=== PATIENT | male | born 1990 | race Caucasian/White ===

== ENCOUNTER 2018-11-23 04:20 | Observation (INO) | payer OTHER ==
--- NOTE | 2018-11-23 04:45 | XRay Report ---
PROCEDURE: XR CHEST 1V AP TECHNIQUE: Chest radiograph single view. HISTORY: Chest Pain COMPARISONS: None . FINDINGS: Heart: Normal. Mediastinum/Vessels: Normal. Lungs/Pleural space: Normal. Bony thorax: No acute osseous abnormality. Life support devices: None. IMPRESSION: No acute cardiopulmonary abnormality. This document is electronically signed by Robb Saucedo MD., November 23 2018 04:43:43 AM ET
[2018-11-23 05:35] LABS: Basophils % (Auto) 0.4 % (0.0-1.8); Eosinophils # (Auto) 0.1 K/mm3 (0.0-0.4); Eosinophils % (Auto) 0.7 % (0.0-4.3); Hematocrit 39.6 % (35.5-45.6); Hemoglobin 13.5 gm/dl (11.8-15.2); Lymphocytes # (Auto) 1.6 K/mm3 (1.2-5.4); Lymphocytes % (Auto) 14.6 % (13.4-35.0); Mean Corpuscular HGB Conc 34 % (32-34); Mean Corpuscular Volume 94 fl (84-94); Monocytes # (Auto) 0.8 K/mm3 (0.0-0.8); Monocytes % (Auto) 7.4 % (0.0-7.3); Platelet Count 283 K/mm3 (140-440); Red Blood Count 4.21 M/mm3 (3.65-5.03)
[2018-11-23 05:49] LABS: BUN/Creatinine Ratio 16; Blood Urea Nitrogen 16 mg/dL (9-20); Hemolysis Index 6
[2018-11-23] MEDS ORDERED: NACL 0.9% 1000 ML 1,000 ML ONE (05:49)
[2018-11-23] MEDS ORDERED: NACL 0.9% 1000 ML 1,000 ML IV ONE (05:50)
[2018-11-23] MEDS ORDERED: NITRO-BID 2% TP ONE (06:15)
[2018-11-23] MEDS ORDERED: ASPIRIN PO ONE (06:15)
--- NOTE | 2018-11-23 06:20 | Emergency Department Report ---
HPI - General Chief Complaint: Arrhythmia/Palpitations Time Seen by Provider: 11/23/18 06:06 - HPI HPI: Room 26 The patient is 27-year-old male presenting with chief complaint of chest pain. The patient states this morning at 04:00 after using cocaine he developed intermittent substernal chest tightness associated with shortness of breath nausea and vomiting. Patient denies diaphoresis. Patient states his chest tightness has been intermittent and lasts came on approximately 20 minutes prior to this interview. Patient states he's never had a stress test or cardiac catheterization Location: Chest Duration: Intermittent since 04:00 Quality: Tightness Severity: [See above] Modifying factors: [see above] Context: [see above] Mode of transportation: [not driving] ED Past Medical Hx - Past Medical History Previous Medical History?: No - Surgical History Past Surgical History?: No - Family History Family history: no significant - Social History Smoking Status: Current Every Day Smoker (1/7 pack per day) Substance Use Type: Alcohol (occasional), Cocaine, Marijuana - Medications Home Medications: Home Medications Medication Instructions Recorded Confirmed Last Taken Type Famotidine [Pepcid] 20 mg PO BID #40 tablet 05/10/14 Unknown Rx Hyoscyamine Subl [Levsin Sl] 0.125 mg SL Q4HR PRN #20 tablet 05/10/14 Unknown Rx Promethazine [Phenergan] 25 mg PO Q6H PRN #14 tablet 05/10/14 Unknown Rx ED Review of Systems ROS: Stated complaint: RAPID HEARTBEAT Other details as noted in HPI Constitutional: denies: diaphoresis Eyes: denies: eye pain ENT: denies: throat pain Respiratory: shortness of breath Cardiovascular: chest pain Endocrine: no symptoms reported Gastrointestinal: nausea, vomiting Musculoskeletal: denies: back pain Skin: denies: lesions Neurological: denies: headache Physical Exam - Physical Exam Vital Signs: Vital Signs 11/23/18 11/23/18 11/23/18 04:53 04:58 05:00 Pulse Rate 81 76 78 Respiratory 16 20 10 L Rate Blood Pressure 124/75 Blood Pressure 121/71 [Left] O2 Sat by Pulse 97 97 96 Oximetry 11/23/18 05:43 Pulse Rate 71 Respiratory 16 Rate Blood Pressure Blood Pressure 95/66 [Left] O2 Sat by Pulse 94 Oximetry Physical Exam: GENERAL: The patient is well-developed well-nourished male lying on stretcher not appearing to be in acute distress. [] HEENT: Normocephalic. Atraumatic. Extraocular motions are intact. Patient has moist mucous membranes. NECK: Supple. Trachea midline CHEST/LUNGS: Clear to auscultation. There is no respiratory distress noted. HEART/CARDIOVASCULAR: Regular. There is no tachycardia. There is no gallop rub or murmur. ABDOMEN: Abdomen is soft, nontender. Patient has normal bowel sounds. There is no abdominal distention. SKIN: There is no rash. There is no edema. There is no diaphoresis. NEURO: The patient is awake, alert, and oriented. The patient is cooperative. The patient has normal speech MUSCULOSKELETAL: There is no evidence of acute injury. ED Course Vital Signs 11/23/18 11/23/18 11/23/18 04:53 04:58 05:00 Pulse Rate 81 76 78 Respiratory 16 20 10 L Rate Blood Pressure 124/75 Blood Pressure 121/71 [Left] O2 Sat by Pulse 97 97 96 Oximetry 11/23/18 05:43 Pulse Rate 71 Respiratory 16 Rate Blood Pressure Blood Pressure 95/66 [Left] O2 Sat by Pulse 94 Oximetry ED Medical Decision Making - Lab Data Result diagrams: 11/23/18 Unknown 11/23/18 Unknown Laboratory Tests 11/23/18 11/23/18 11/23/18 06:29 Unknown Unknown WBC 11.1 H RBC 4.21 Hgb 13.5 Hct 39.6 MCV 94 MCH 32 MCHC 34 RDW 13.0 L Plt Count 283 Lymph % (Auto) 14.6 [place] % (Auto) 7.4 H Eos % (Auto) 0.7 Baso % (Auto) 0.4 Lymph # 1.6 [place] # 0.8 Eos # 0.1 Baso # 0.0 Seg Neutrophils % 76.9 H Seg Neutrophils # 8.5 H Sodium 138 Potassium 3.6 Chloride 101.3 Carbon Dioxide 24 Anion Gap 16 BUN 16 Creatinine 1.0 Estimated GFR > 60 BUN/Creatinine Ratio 16 Glucose 138 H Calcium 9.0 Total Creatine Kinase Troponin T < 0.010 Urine Opiates Screen Presumptive negative Urine Methadone Screen Presumptive negative Ur Barbiturates Screen Presumptive negative Ur Phencyclidine Scrn Presumptive negative Ur Amphetamines Screen Presumptive negative U Benzodiazepines Scrn Presumptive negative Urine Cocaine Screen Presumptive positive U Marijuana (THC) Screen Presumptive positive Drugs of Abuse Note Disclamer 11/23/18 Unknown WBC RBC Hgb Hct MCV MCH MCHC RDW Plt Count Lymph % (Auto) [place] % (Auto) Eos % (Auto) Baso % (Auto) Lymph # Mason # Eos # Baso # Seg Neutrophils % Seg Neutrophils # Sodium Potassium Chloride Carbon Dioxide Anion Gap BUN Creatinine Estimated GFR BUN/Creatinine Ratio Glucose Calcium Total Creatine Kinase 71 Troponin T Urine Opiates Screen Urine Methadone Screen Ur Barbiturates Screen Ur Phencyclidine Scrn Ur Amphetamines Screen U Benzodiazepines Scrn Urine Cocaine Screen U Marijuana (THC) Screen Drugs of Abuse Note - EKG Data -: EKG Interpreted by Me EKG shows normal: sinus rhythm Rate: normal - EKG Data When compared to previous EKG there are: previous EKG unavailable Interpretation: nonspecific ST-T wave [place] (T-wave inversion in lead 3) - Radiology Data Radiology results: report reviewed (chest x-ray), image reviewed (chest x-ray) interpreted by me: Chest x-ray-no focal infiltrates, no pneumothorax [facility] [address] [place] [address] XRay Report Signed Patient: ROSALIE BORREGO MR# : [id number] : 1990 Acct:[id number] Age/Sex: 27 / M ADM Date: 11/23/18 Loc: ED Attending Dr: Ordering Physician: JEANNE COONEY MD Date of Service: 11/23/18 Procedure(s): XR chest 1V ap Accession Number(s): [id number] cc: JEANNE COONEY MD Fluoro Time In Minutes: PROCEDURE: XR CHEST 1V AP TECHNIQUE: Chest radiograph single view. HISTORY: Chest Pain COMPARISONS: None . FINDINGS: Heart: Normal. Mediastinum/Vessels: Normal. Lungs/Pleural space: Normal. Bony thorax: No acute osseous abnormality. Life support devices: None. IMPRESSION: No acute cardiopulmonary abnormality. This document is electronically signed by Maricel Saucedo MD., November 23 2018 04:43:43 AM ET Transcribed By: RB Dictated By: MARICEL SAUCEDO MD Electronically Authenticated By: MARICEL SAUCEDO MD Signed Date/Time: 11/23/18444 DD/ 9 TD/TT: 11/23/18439 - Differential Diagnosis ACS, Prinzmetal's angina, pleurisy, pneumothorax Critical care attestation.: If time is entered above; I have spent that time in minutes in the direct care of this critically ill patient, excluding procedure time. ED Disposition Clinical Impression: Chest pain, Cocaine abuse Disposition: OP ADMIT IP TO THIS HOSP Is pt being admited?: Yes Does the pt Need Aspirin: Yes Condition: Fair Instructions: Chest Pain (ED) Referrals: LENNOX OSBORNE MD [Primary Care Provider] - 3-5 Days Time of Disposition: 07:19 (hospitalist paged (Dr Collins))
[2018-11-23 06:48] LABS: Amphetamine Screen,Urine PRESUMPTIVE NEGATIVE; Benzodiazepines Screen,Urine PRESUMPTIVE NEGATIVE; Methadone Screen,Urine PRESUMPTIVE NEGATIVE; Opiate Screen,Urine PRESUMPTIVE NEGATIVE
[2018-11-23 07:11] LABS: Cannabinoid Screen,Urine PRESUMPTIVE POSITIVE; Cocaine Screen,Urine PRESUMPTIVE POSITIVE
--- NOTE | 2018-11-23 09:18 | History and Physical Report ---
History of Present Illness Date of examination: 11/23/18 Date of admission: 11/23/18 07:34 Chief complaint: Chest pain, shortness of breath History of present illness: The patient is 27-year-old male presenting with chief complaint of chest pain. The patient states this morning at 04:00 after using cocaine he developed intermittent substernal chest tightness associated with shortness of breath nausea and vomiting. Patient denies diaphoresis. Patient states his chest tightness has been intermittent and lasts came on approximately 20 minutes prior to this interview. Patient states he's never had a stress test or cardiac catheterization Past History Past Medical History: hypertension Past Surgical History: No surgical history Social history: smoking, alcohol abuse Medications and Allergies Allergies Allergy/AdvReac Type Severity Reaction Status Date / Time No Known Allergies Allergy Verified 04/20/14 20:25 Home Medications Medication Instructions Recorded Confirmed Last Taken Type Famotidine [Pepcid] 20 mg PO BID #40 tablet 05/10/14 Unknown Rx Hyoscyamine Subl [Levsin Sl] 0.125 mg SL Q4HR PRN #20 tablet 05/10/14 Unknown Rx Promethazine [Phenergan] 25 mg PO Q6H PRN #14 tablet 05/10/14 Unknown Rx Active Meds: Review of systems Constitutional: Well Nourished and Well developed. Head: NC/ AT Eyes: Denies any visual impairments. No discharge from the eyes Nose: Denies any rhinorrhea or epistaxis Throats: Denies any post nasal drainage. Ears: Denies any hearing deficits Cardiovascular system: has chest pain, shortness of breath, no orthopnea, paroxysmal nocturnal dyspnea, or palpitation. Respiratory system: Denies any cough, difficulty breathing, wheezing, pleuritic chest pain, Gastrointestinal system: Denies any abdominal pain, nausea vomiting, hematemesis or melena. Neurological system: Denies any headache, slurred speech, facial droop, lateralizing weakness Genitalia system: Denies any dysuria, urinary frequency or urgency, urethral discharge Skin: No rashes, hyperpigmented spots. Hematological: Denies any cervical tenderness hemorrhages or petechia. Immunological: Denies any multiple septic spots, Lymphatic: Denies any generalized lymphadenopathy. Endocrine: Denies any polyuria, polydipsia, polyphagia. No heat or cold intolerance. Musculoskeletal system: No joint pain or swelling. Psych: No visual, tactile, auditory or hallucination Exam - Physical Exam Narrative exam: Constitutional: Well-nourished well-developed. In no distress Head: Normocephalic atraumatic Eyes: Pupils are equal round and reactive to light Nose: No enlarged turbinates, no septal deviation. Mouth: Moist mucous membranes. Neck: Supple no thyromegaly. No bruit. No JVD Heart: Regular rate and rhythm, S1-S2 normal. No rubs murmurs or gallop Lungs: Clear to auscultation bilaterally. no rales or rhonchi Abdomen: Soft, nontender. Bowel sound are present. Extremities: No edema, no cyanosis, no clubbing. Neuro: Alert oriented Oriented x3. No focal sensory or motor deficit. Skin: No rashes or hyperpigmented spots Musculoskeletal system: No joint pain or swelling Hematological: No petechia or subcutanous hemorrhages. Immunological: No multiple septic spots on the skin Lymphatic: No generalized lymphadenopathy Psychiatry: Euthymic. Calm. - Constitutional Vitals: Temp Pulse Resp BP Pulse Ox 54 L 13 119/58 96 11/23/18 09:00 11/23/18 09:00 11/23/18 09:00 11/23/18 09:00 Results - Labs CBC & Chem 7: 11/23/18 Unknown 11/23/18 Unknown Labs: Abnormal lab results 11/23/18 11/23/18 Range/Units Unknown Unknown WBC 11.1 H (4.5-11.0) K/mm3 RDW 13.0 L (13.2-15.2) % [place] % (Auto) 7.4 H (0.0-7.3) % Seg Neutrophils % 76.9 H (40.0-70.0) % Seg Neutrophils # 8.5 H (1.8-7.7) K/mm3 Glucose 138 H (75-100) mg/dL Assessment and Plan - Chest pain from cocaine use disorder Comments patient is nitroglycerin and aspirin and morphine Similar enzymes Stress thallium - Cocaine abuse counseling on cocaine cessation - DVT prophylaxis with Lovenox Time spent: 35 minutes
[2018-11-23] MEDS ORDERED: D5LR 1,000 ML IV SCH (10:00)
[2018-11-23] MEDS ORDERED: SODIUM CHLORIDE FLUSH SYRINGE 10 ML IV PRN (10:00)
[2018-11-23] MEDS ORDERED: MORPHINE IV PRN (10:00)
[2018-11-23 10:17] LABS: BUN/Creatinine Ratio 16; Blood Urea Nitrogen 14 mg/dL (9-20); Calcium 8.8 mg/dL (8.4-10.2); Hemolysis Index 6
[2018-11-23] MEDS ORDERED: LEXISCAN IV ONE ×2 (10:40→11:31)
[2018-11-23 13:22] VITALS: BP 108/72
[2018-11-23] MEDS ORDERED: NITRO-BID 2% TP SCH (14:00)
[2018-11-24] MEDS ORDERED: ECOTRIN PO SCH (10:00)
--- NOTE | 2018-11-27 22:00 | Treadmill Report ---
NUCLEAR PERFUSION TEST REFERRING PHYSICIAN: Dr. Mcleod. SUPERVISING PHYSICIAN: Dr. Ferguson. PROTOCOL: The patient was brought to the stress lab in a postabsorptive state, given 10 mCi of technetium 99m at rest. The patient underwent rest imaging. The patient underwent Lexiscan stress test. At peak stress, the patient was given 26 mCi of technetium 99m. Shortly thereafter, the patient underwent stress imaging. Raw imaging reveals significant GI artifact which partially obscures the inferior wall. No significant motion artifact. SPECT image examined carefully in the horizontal long axis, vertical long axis, and short axis views. Although the inferior wall is partially obscured by subdiaphragmatic activity, grossly, there is no evidence of a significant degree of ischemia or prior infarction. Bowman wall motion reveals normal systolic thickening, calculated ejection fraction of 58%. CONCLUSIONS: 1. Technically difficult study due to partial obscuration of the inferior wall with subdiaphragmatic activity, but grossly probably normal without evidence of significant degree of ischemia or prior infarction. 2. Normal left ventricular systolic performance with a calculated ejection fraction of 58% without evidence of transient ischemic dilatation or stress-induced segmental wall motion abnormalities. 3. Lexiscan EKG stress test is reported separately. JOB# [id number] SBM/NTS
--- NOTE | 2018-11-29 14:13 | Discharge Summary ---
Date of signing against medical advice was 11/23/2018. ADMITTING DIAGNOSES: 1. Chest pain, possibly from cocaine use. 2. Cocaine abuse. 3. Mild leukocytosis. HOSPITAL COURSE: The patient is a 27-year-old gentleman who came in complaining of chest pain that was dull in nature. It started after using cocaine. Chest pain was intermittent. Associated with shortness of breath, nausea, vomiting. No diaphoresis. On admission to the Emergency Department, the cardiac enzymes were normal. UDS was positive for cocaine. Stress test was ordered. This was normal. On returning from stress test said that he wanted to go home. He was advised against the same. He insisted and signed form to discharge against medical advice. DISCHARGE DIAGNOSES: Include: 1. Chest pain from cocaine abuse. 2. Cocaine abuse. 3. Mild leukocytosis. JOB# [id number] OO/LAUREN MTDElizabet
== END 2018-11-23 12:15 | disposition left against medical advice (07) ==
LOC: ED 04:20 → 4A 07:34
PROVIDERS: ADMIT Family Medicine; ATTEND Family Medicine
DX: R07.89 Other chest pain (principal); R11.2 Nausea with vomiting, unspecified; F14.10 Cocaine abuse, uncomplicated; F17.200 Nicotine dependence, unspecified, uncomplicated; Z79.899 Other long term (current) drug therapy
CPT/HCPCS: 36415; 71045; 78452; 80048; 80307; 82550; 84484; 85025; 93005; 93010; 93017; 96360; 99284; A9502; G0378; J2785; J7030; J7121

== ENCOUNTER 2019-10-16 08:20 | Emergency (ER) | payer SELFPAY ==
[2019-10-16] MEDS ORDERED: DICYCLOMINE 20 MG/2 ML INJ IM ONE (09:38)
[2019-10-16] MEDS ORDERED: ONDANSETRON 4 MG/2 ML INJ IV ONE ×2 (09:38→13:40)
[2019-10-16] MEDS ORDERED: SODIUM CHLORIDE 0.9% 1000 ML 1,000 ML IV ONE (09:38)
--- NOTE | 2019-10-16 09:45 | Emergency Department Report ---
ED Abdominal Pain HPI - General Chief Complaint: Abdominal Pain Stated Complaint: V/FEVER Time Seen by Provider: 10/16/19 09:25 Source: patient Mode of arrival: Ambulatory Limitations: No Limitations - History of Present Illness Initial Comments: Pt is a 28 y/o male marijuana smoker who presents for abd pain with n/v x 3 days denies medical hx, there is no fever or chills, denies injury or trauma. states last po intake yesterday , last n/v 2 hrs ago. last Marijuana 2 days ago. MD Complaint: abdominal pain Onset/Timin -: days(s) Location: LLQ Radiation: RLQ Severity: moderate Severity scale (0 -10): 5 Quality: cramping, aching Consistency: constant Improves With: nothing Worsens With: eating Associated Symptoms: nausea, vomiting. denies: diarrhea, constipation, hematemesis - Related Data Previous Rx's Medication Instructions Recorded Last Taken Type Famotidine [Pepcid] 20 mg PO BID #40 tablet 05/10/14 Unknown Rx Hyoscyamine Subl [Levsin Sl] 0.125 mg SL Q4HR PRN #20 tablet 05/10/14 Unknown Rx Promethazine [Phenergan] 25 mg PO Q6H PRN #14 tablet 05/10/14 Unknown Rx Dicyclomine [Bentyl] 10 mg PO QID PRN #12 capsule 10/16/19 Unknown Rx Ondansetron [Zofran Odt] 4 mg PO Q8HR PRN #112 tab.rapdis 10/16/19 Unknown Rx cephALEXin [Keflex] 500 mg PO BID 7 Days #14 cap 10/16/19 Unknown Rx Allergies Allergy/AdvReac Type Severity Reaction Status Date / Time No Known Allergies Allergy Verified 10/16/19 08:24 ED Review of Systems ROS: Stated complaint: V/FEVER Other details as noted in HPI Constitutional: denies: chills, fever Eyes: denies: eye pain, eye discharge, vision change ENT: denies: ear pain, throat pain Respiratory: denies: cough, shortness of breath, wheezing Cardiovascular: denies: chest pain, palpitations Endocrine: no symptoms reported Gastrointestinal: abdominal pain, nausea, vomiting. denies: diarrhea, c onstipation, melena Genitourinary: denies: urgency, dysuria Musculoskeletal: denies: back pain, joint swelling, arthralgia Skin: denies: rash, lesions Neurological: denies: headache, weakness, paresthesias Psychiatric: denies: anxiety, depression Hematological/Lymphatic: denies: easy bleeding, easy bruising ED Past Medical Hx - Past Medical History Previous Medical History?: No - Surgical History Past Surgical History?: No - Social History Smoking Status: Never Smoker Substance Use Type: Marijuana - Medications Home Medications: Home Medications Medication Instructions Recorded Confirmed Last Taken Type Famotidine [Pepcid] 20 mg PO BID #40 tablet 05/10/14 Unknown Rx Hyoscyamine Subl [Levsin Sl] 0.125 mg SL Q4HR PRN #20 tablet 05/10/14 Unknown Rx Promethazine [Phenergan] 25 mg PO Q6H PRN #14 tablet 05/10/14 Unknown Rx Dicyclomine [Bentyl] 10 mg PO QID PRN #12 capsule 10/16/19 Unknown Rx Ondansetron [Zofran Odt] 4 mg PO Q8HR PRN #112 tab.rapdis 10/16/19 Unknown Rx cephALEXin [Keflex] 500 mg PO BID 7 Days #14 cap 10/16/19 Unknown Rx ED Physical Exam - General Limitations: No Limitations General appearance: alert, in no apparent distress - Head Head exam: Present: atraumatic, normocephalic - Eye Eye exam: Present: normal appearance, PERRL, EOMI Pupils: Present: normal accommodation - ENT ENT exam: Present: mucous membranes moist - Neck Neck exam: Present: normal inspection - Respiratory Respiratory exam: Present: normal lung sounds bilaterally. Absent: respiratory distress, wheezes - Cardiovascular Cardiovascular Exam: Present: regular rate, normal rhythm, normal heart sounds. Absent: systolic murmur, diastolic murmur, rubs, gallop - GI/Abdominal GI/Abdominal exam: Present: soft, tenderness (LLQ), hyperactive bowel sounds. Absent: guarding, rebound, rigid, bruit, hernia - Rectal Rectal exam: Present: deferred - Extremities Exam Extremities exam: Present: normal inspection - Back Exam Back exam: Present: normal inspection - Neurological Exam Neurological exam: Present: alert, oriented X3 - Psychiatric Psychiatric exam: Present: normal affect, normal mood - Skin Skin exam: Present: warm, dry, intact, normal color. Absent: rash ED Course Vital Signs 10/16/19 10/16/19 08:24 08:27 Temperature 97.9 F Pulse Rate 88 Respiratory 20 Rate Blood Pressure 133/65 O2 Sat by Pulse 98 Oximetry ED Medical Decision Making - Lab Data Result diagrams: 10/16/19 09:55 10/16/19 09:55 Labs 10/16/19 10/16/19 10/16/19 09:55 09:55 10:29 WBC 10.6 RBC 4.13 Hgb 13.0 Hct 38.5 MCV 93 MCH 32 MCHC 34 RDW 13.0 L Plt Count 300 Lymph % (Auto) 15.8 [place] % (Auto) 7.9 H Eos % (Auto) 0.7 Baso % (Auto) 0.3 Lymph # 1.7 [place] # 0.8 Eos # 0.1 Baso # 0.0 Seg Neutrophils % 75.3 H Seg Neutrophils # 8.0 H Sodium 139 Potassium 4.0 Chloride 107.0 Carbon Dioxide 20 L Anion Gap 16 BUN 24 H Creatinine 0.9 Estimated GFR > 60 BUN/Creatinine Ratio 27 Glucose 115 H Calcium 9.3 Total Bilirubin 0.80 AST 24 ALT 24 Alkaline Phosphatase 99 Total Protein 7.0 Albumin 4.2 Albumin/Globulin Ratio 1.5 Lipase 17 Urine Color Yellow Urine Turbidity Cloudy Urine pH 5.0 Ur Specific [place] 1.029 Urine Protein 30 mg/dl Urine Glucose (UA) Neg Urine Ketones Neg Urine Blood Neg Urine Nitrite Neg Urine Bilirubin Neg Urine Urobilinogen < 2.0 Ur Leukocyte Esterase Sm Urine WBC (Auto) 33.0 H Urine RBC (Auto) 7.0 U Epithel Cells (Auto) 3.0 Ur Transition Epith Cell 3 Urine Mucus 3+ - Radiology Data Radiology results: report reviewed, image reviewed Findings Reporting MD: Gal Gibbs Dictation Time: October 16, 2019 14:51 Home Support Worker: Not available Lath Tier Date: CT ABDOMEN AND PELVIS WITHOUT CONTRAST INDICATION: Bilateral flank pain CONTRAST: Without IV COMPARISON: 05/10/2014, report unavailable All CT scans at this location are performed using CT dose reduction for ALARA by means of automated exposure control. FINDINGS: Lung bases are clear. No pneumoperitoneum is noted. Fatty umbilical hernia is seen without acute change and without bowel. Appendix appears within normal limits. Appearance of the left colon probably is just due to lack of distention. No evidence of bowel obstruction is seen. No free fluid is noted. No lymphadenopathy is seen. No urinary tract calculi or evidence of obstruction are seen. No masses are noted. Gallbladder and bile ducts appear within normal limits. No inflammatory changes are seen. IMPRESSION: No acute abnormalities are seen Signer Name: Gal Gibbs MD Signed: 10/16/2019 2:51 PM Workstation Name: [email or web address] - Medical Decision Making CT abdomen pelvis is normal UA positive for leuks and white blood cells , fevers improved abdominal pain is resolved plan treat for UTI with Cipro, patient will obtain [id number] MiraLAX or laxative of choice patient will be DC'd home in stable condition at this time advised to stop using or abusing marijuana follow-up with PCP in 2 to 3 days. Critical care attestation.: If time is entered above; I have spent that time in minutes in the direct care of this critically ill patient, excluding procedure time. ED Disposition Clinical Impression: UTI (urinary tract infection) Qualifiers: Urinary tract infection type: acute cystitis Hematuria presence: without hematuria Qualified Code(s): N30.00 - Acute cystitis without hematuria Abdominal pain Qualifiers: Abdominal location: lower abdomen, unspecified Qualified Code(s): R10.30 - Lower abdominal pain, unspecified Disposition: DC-01 TO HOME OR SELFCARE Is pt being admited?: No Does the pt Need Aspirin: No Condition: Stable Instructions: Urinary Tract Infection in Men (ED), Abdominal Pain (ED) Prescriptions: Dicyclomine [Bentyl] 10 mg PO QID PRN #12 capsule PRN Reason: abdominal spasm cephALEXin [Keflex] 500 mg PO BID 7 Days #14 cap Ondansetron [Zofran Odt] 4 mg PO Q8HR PRN #112 tab.rapdis PRN Reason: Nausea And Vomiting Referrals: EDOUARD CEDENO MD [Staff Physician] - 3-5 Days Forms: Work/School Release Form(ED) Time of Disposition: 16:13
[2019-10-16 10:39] LABS: Alanine Aminotransferase 24 units/L (7-56); Albumin 4.2 g/dL (3.9-5); BUN/Creatinine Ratio 27; Blood Urea Nitrogen 24 mg/dL (9-20); Calcium 9.3 mg/dL (8.4-10.2); Hemolysis Index 61
[2019-10-16 11:02] LABS: Basophils % (Auto) 0.3 % (0.0-1.8); Eosinophils # (Auto) 0.1 K/mm3 (0.0-0.4); Eosinophils % (Auto) 0.7 % (0.0-4.3); Hematocrit 38.5 % (35.5-45.6); Lymphocytes # (Auto) 1.7 K/mm3 (1.2-5.4); Lymphocytes % (Auto) 15.8 % (13.4-35.0); Mean Corpuscular HGB Conc 34 % (32-34); Mean Corpuscular Volume 93 fl (84-94); Monocytes # (Auto) 0.8 K/mm3 (0.0-0.8); Monocytes % (Auto) 7.9 % (0.0-7.3); Platelet Count 300 K/mm3 (140-440); Red Blood Count 4.13 M/mm3 (3.65-5.03)
[2019-10-16 11:41] LABS: Bilirubin,Urine NEG (Negative); Blood,Urine NEG (Negative); Color,Urine Yellow (Yellow); Mucus,Urine 3+ /HPF; Urobilinogen,Urine < 2.0 mg/dL (<2.0)
[2019-10-16] MEDS ORDERED: MORPHINE 4 MG/1 ML INJ IV ONE (13:40)
--- NOTE | 2019-10-16 15:55 | Cat Scan Report ---
CT ABDOMEN AND PELVIS WITHOUT CONTRAST INDICATION: Bilateral flank pain CONTRAST: Without IV COMPARISON: 05/10/2014, report unavailable All CT scans at this location are performed using CT dose reduction for ALARA by means of automated e xposure control. FINDINGS: Lung bases are clear. No pneumoperitoneum is noted. Fatty umbilical hernia is seen without acute change and without bowel. Appendix appears within normal limits. Appearance of the left colon p robably is just due to lack of distention. No evidence of bowel obstruction is seen. No free fluid is noted. No lymphadenopathy is seen. No urinary tract calculi or evidence of obstruction are seen. No masses are noted. Gallbladder and bile ducts appear within normal limits. No inflammatory changes are seen. IMPRESSION: No acute abnormalities are seen Signer Name: Gal Gibbs MD Signed: 10/16/2019 3:51 PM Workstation Name: [id number]
[2019-10-16 16:34] VITALS: BP 131/82
== END 2019-10-16 16:35 | disposition home or self-care (01) ==
LOC: ED 08:20
DX: N39.0 Urinary tract infection, site not specified (principal); F12.10 Cannabis abuse, uncomplicated; Z79.899 Other long term (current) drug therapy
CPT/HCPCS: 36415; 74176; 80053; 81001; 83690; 85025; 87086; 96361; 96372; 96374; 96375; 96376; 99284; J0500; J2270; J2405; J7030

== ENCOUNTER 2019-10-17 16:33 | Emergency (ER) | payer SELFPAY ==
[2019-10-17 16:41] VITALS: BP 135/76
== END 2019-10-17 18:30 | disposition left against medical advice (07) ==
LOC: ED 16:33
DX: R10.9 Unspecified abdominal pain (principal); R11.2 Nausea with vomiting, unspecified; Z53.21 Procedure and treatment not carried out due to patient leaving prior to being seen by health care provider

== ENCOUNTER 2019-10-18 09:13 | Emergency (ER) | payer SELFPAY ==
[2019-10-18 10:25] LABS: Bilirubin,Urine NEG (Negative); Blood,Urine SM (Negative); Color,Urine Straw (Yellow); Mucus,Urine FEW /HPF; Protein,Urine <15 mg/dL mg/dL (Negative); Urobilinogen,Urine < 2.0 mg/dL (<2.0)
[2019-10-18] MEDS ORDERED: FAMOTIDINE 20 MG/2 ML INJ IV ONE (11:06)
[2019-10-18] MEDS ORDERED: SODIUM CHLORIDE 0.9% 1000 ML 1,000 ML IV ONE (11:06)
--- NOTE | 2019-10-18 11:06 | Emergency Department Report ---
ED Abdominal Pain HPI - General Chief Complaint: Nausea/Vomiting/Diarrhea Stated Complaint: NAUSEA Time Seen by Provider: 10/18/19 09:57 Source: patient Mode of arrival: Ambulatory Limitations: No Limitations - History of Present Illness Initial Comments: 28-year-old male patient presents with complaints of continued nausea and abdominal pain for 5 days. Patient was seen here on 10/16/2019 with the same complaints. Patient symptoms began after smoking marijuana. He does report history of esophagitis caused by high alcohol intake. Patient states he also still experiences a great deal of heartburn, however he does not currently take any antacids. Patient rates his current pain as a 4/10 in severity and states it is in his upper, middle and lower abdomen. During last visit, patient was also treated for UTI with Cipro and states his symptoms of urinary frequency and dysuria have resolved. He denies any penile discharge/pain/swelling/lesions or testicular pain/swelling. Patient also denies any vomiting, melena, constipation, hematochezia, or diarrhea. He states he is able to keep food down, however he has a decreased appetite. He is not currently following with a GI specialist. - Related Data Previous Rx's Medication Instructions Recorded Last Taken Type Famotidine [Pepcid] 20 mg PO BID #40 tablet 05/10/14 Unknown Rx Hyoscyamine Subl [Levsin Sl] 0.125 mg SL Q4HR PRN #20 tablet 05/10/14 Unknown Rx Promethazine [Phenergan] 25 mg PO Q6H PRN #14 tablet 05/10/14 Unknown Rx Dicyclomine [Bentyl] 10 mg PO QID PRN #12 capsule 10/16/19 Unknown Rx Ondansetron [Zofran Odt] 4 mg PO Q8HR PRN #112 tab.rapdis 10/16/19 Unknown Rx cephALEXin [Keflex] 500 mg PO BID 7 Days #14 cap 10/16/19 Unknown Rx Ondansetron [Zofran Odt] 4 mg PO Q8HR PRN #15 tab.rapdis 10/18/19 Unknown Rx Pantoprazole [Protonix] 40 mg PO QAM 30 Days #30 tablet 10/18/19 Unknown Rx Sucralfate [Carafate] 1 gm PO Q6HR 15 Days #60 tablet 10/18/19 Unknown Rx Allergies Allergy/AdvReac Type Severity Reaction Status Date / Time No Known Allergies Allergy Verified 10/16/19 08:24 ED Review of Systems ROS: Stated complaint: NAUSEA Other details as noted in HPI Constitutional: denies: chills, fever, malaise ENT: denies: throat pain Respiratory: denies: cough, shortness of breath Cardiovascular: denies: chest pain, edema Endocrine: denies: excessive sweating Gastrointestinal: abdominal pain, nausea. denies: vomiting, diarrhea, constipation, hematemesis, melena, hematochezia Genitourinary: denies: urgency, dysuria, frequency, hematuria, discharge, t esticular pain, testicular mass Musculoskeletal: denies: back pain Skin: denies: rash, lesions, change in color Neurological: denies: headache, weakness, abnormal gait Hematological/Lymphatic: denies: easy bleeding, easy bruising, swollen glands ED Past Medical Hx - Past Medical History Previous Medical History?: No - Surgical History Past Surgical History?: No - Social History Smoking Status: Current Some Day Smoker Substance Use Type: Alcohol, Marijuana - Medications Home Medications: Home Medications Medication Instructions Recorded Confirmed Last Taken Type Famotidine [Pepcid] 20 mg PO BID #40 tablet 05/10/14 Unknown Rx Hyoscyamine Subl [Levsin Sl] 0.125 mg SL Q4HR PRN #20 tablet 05/10/14 Unknown Rx Promethazine [Phenergan] 25 mg PO Q6H PRN #14 tablet 05/10/14 Unknown Rx Dicyclomine [Bentyl] 10 mg PO QID PRN #12 capsule 10/16/19 Unknown Rx Ondansetron [Zofran Odt] 4 mg PO Q8HR PRN #112 tab.rapdis 10/16/19 Unknown Rx cephALEXin [Keflex] 500 mg PO BID 7 Days #14 cap 10/16/19 Unknown Rx Ondansetron [Zofran Odt] 4 mg PO Q8HR PRN #15 tab.rapdis 10/18/19 Unknown Rx Pantoprazole [Protonix] 40 mg PO QAM 30 Days #30 tablet 10/18/19 Unknown Rx Sucralfate [Carafate] 1 gm PO Q6HR 15 Days #60 tablet 10/18/19 Unknown Rx ED Physical Exam - General Limitations: No Limitations General appearance: alert, in no apparent distress - Head Head exam: Present: atraumatic, normocephalic - Eye Eye exam: Present: normal appearance. Absent: scleral icterus - Neck Neck exam: Present: normal inspection, full ROM - Respiratory Respiratory exam: Present: normal lung sounds bilaterally. Absent: respiratory distress - Cardiovascular Cardiovascular Exam: Present: regular rate, normal rhythm. Absent: systolic murmur, diastolic murmur, rubs, gallop - GI/Abdominal GI/Abdominal exam: Present: soft, tenderness, normal bowel sounds. Absent: distended, guarding, rebound, rigid - Extremities Exam Extremities exam: Present: normal inspection - Back Exam Back exam: Present: normal inspection. Absent: CVA tenderness (R), CVA tenderness (L) - Neurological Exam Neurological exam: Present: alert, oriented X3 - Psychiatric Psychiatric exam: Present: normal affect, normal mood - Skin Skin exam: Present: warm, dry, intact, normal color. Absent: rash, erythema, ecchymosis ED Course Vital Signs 10/18/19 09:18 Temperature 98 F Pulse Rate 72 Respiratory 16 Rate Blood Pressure 129/77 O2 Sat by Pulse 98 Oximetry ED Medical Decision Making - Lab Data Result diagrams: 10/18/19 10:42 10/18/19 10:42 Lab Results 10/18/19 10/18/19 10/18/19 Range/Units 10:12 10:42 10:42 WBC 10.5 (4.5-11.0) K/mm3 RBC 4.32 (3.65-5.03) M/mm3 Hgb 13.2 (11.8-15.2) gm/dl Hct 39.9 (35.5-45.6) % MCV 92 (84-94) fl MCH 31 (28-32) pg MCHC 33 (32-34) % RDW 13.5 (13.2-15.2) % Plt Count 327 (140-440) K/mm3 Lymph % (Auto) 19.7 (13.4-35.0) % [place] % (Auto) 7.9 H (0.0-7.3) % Eos % (Auto) 0.4 (0.0-4.3) % Baso % (Auto) 0.5 (0.0-1.8) % Lymph # 2.1 (1.2-5.4) K/mm3 [place] # 0.8 (0.0-0.8) K/mm3 Eos # 0.0 (0.0-0.4) K/mm3 Baso # 0.1 (0.0-0.1) K/mm3 Seg Neutrophils % 71.5 H (40.0-70.0) % Seg Neutrophils # 7.5 (1.8-7.7) K/mm3 Sodium 140 (137-145) mmol/L Potassium 4.1 (3.6-5.0) mmol/L Chloride 106.8 (98-107) mmol/L Carbon Dioxide 24 (22-30) mmol/L Anion Gap 13 mmol/L BUN 11 (9-20) mg/dL Creatinine 1.0 (0.8-1.5) mg/dL Estimated GFR > 60 ml/min BUN/Creatinine Ratio 11 % Glucose 124 H (75-100) mg/dL Calcium 9.1 (8.4-10.2) mg/dL Total Bilirubin 1.20 (0.1-1.2) mg/dL AST 19 (5-40) units/L ALT 22 (7-56) units/L Alkaline Phosphatase 98 (35-129) units/L Total Protein 7.0 (6.3-8.2) g/dL Albumin 4.1 (3.9-5) g/dL Albumin/Globulin Ratio 1.4 % Lipase (13-60) units/L Urine Color Straw (Yellow) Urine Turbidity Clear (Clear) Urine pH 7.0 (5.0-7.0) Ur Specific [place] 1.010 (1.003-1.030) Urine Protein <15 mg/dl (Negative) mg/dL Urine Glucose (UA) Neg (Negative) mg/dL Urine Ketones Neg (Negative) mg/dL Urine Blood Sm (Negative) Urine Nitrite Neg (Negative) Urine Bilirubin Neg (Negative) Urine Urobilinogen < 2.0 (<2.0) mg/dL Ur Leukocyte Esterase Neg (Negative) Urine WBC (Auto) 2.0 (0.0-6.0) /HPF Urine RBC (Auto) 3.0 (0.0-6.0) /HPF Urine Mucus Few /HPF 05/18/20 Range/Units 10:42 WBC (4.5-11.0) K/mm3 RBC (3.65-5.03) M/mm3 Hgb (11.8-15.2) gm/dl Hct (35.5-45.6) % MCV (84-94) fl MCH (28-32) pg MCHC (32-34) % RDW (13.2-15.2) % Plt Count (140-440) K/mm3 Lymph % (Auto) (13.4-35.0) % [place] % (Auto) (0.0-7.3) % Eos % (Auto) (0.0-4.3) % Baso % (Auto) (0.0-1.8) % Lymph # (1.2-5.4) K/mm3 [place] # (0.0-0.8) K/mm3 Eos # (0.0-0.4) K/mm3 Baso # (0.0-0.1) K/mm3 Seg Neutrophils % (40.0-70.0) % Seg Neutrophils # (1.8-7.7) K/mm3 Sodium (137-145) mmol/L Potassium (3.6-5.0) mmol/L Chloride (98-107) mmol/L Carbon Dioxide (22-30) mmol/L Anion Gap mmol/L BUN (9-20) mg/dL Creatinine (0.8-1.5) mg/dL Estimated GFR ml/min BUN/Creatinine Ratio % Glucose (75-100) mg/dL Calcium (8.4-10.2) mg/dL Total Bilirubin (0.1-1.2) mg/dL AST (5-40) units/L ALT (7-56) units/L Alkaline Phosphatase (35-129) units/L Total Protein (6.3-8.2) g/dL Albumin (3.9-5) g/dL Albumin/Globulin Ratio % Lipase 31 (13-60) units/L Urine Color (Yellow) Urine Turbidity (Clear) Urine pH (5.0-7.0) Ur Specific [place] (1.003-1.030) Urine Protein (Negative) mg/dL Urine Glucose (UA) (Negative) mg/dL Urine Ketones (Negative) mg/dL Urine Blood (Negative) Urine Nitrite (Negative) Urine Bilirubin (Negative) Urine Urobilinogen (<2.0) mg/dL Ur Leukocyte Esterase (Negative) Urine WBC (Auto) (0.0-6.0) /HPF Urine RBC (Auto) (0.0-6.0) /HPF Urine Mucus /HPF - Medical Decision Making Patient here with complaints of continued abdominal pain and nausea for 5 days now. Patient was seen here 10/16/2019 for the same symptoms. During that visit, patient's labs were normal and his CT with oral contrast was without acute findings. Patient was found to have a UTI and was treated with Cipro, patient states his dysuria has resolved. White count is normal on CBC. UA is now antonina l. CMP is normal. No rebound or guarding noted on abdominal exam. Patient has a history of esophagitis caused by alcohol abuse. Patient was given a GI cocktail, IV Protonix, and Zofran. He is drinking and eating without difficulty here in the ED now. Patient states his symptoms have significantly improved. He is afebrile and non-tachycardic. Patient is well-appearing and stable for discharge home. Prescriptions for Protonix and Carafate given. Patient informed to follow-up with [facility] and gastroenterology for further treatment. Strict return precautions were discussed in great detail with patient who verbalizes understanding. Discussed patient with MD who agrees with plan of care. Critical care attestation.: If time is entered above; I have spent that time in minutes in the direct care of this critically ill patient, excluding procedure time. ED Disposition Clinical Impression: Nausea Gastritis Qualifiers: Gastritis type: other gastritis Chronicity: acute Gastritis bleeding: presence of bleeding unspecified Qualified Code(s): K29.00 - Acute gastritis without bleeding Disposition: DC-01 TO HOME OR SELFCARE Is pt being admited?: No Condition: Stable Instructions: Gastritis (ED), Diet for Ulcers and Gastritis (ED) Prescriptions: Sucralfate [Carafate] 1 gm PO Q6HR 15 Days #60 tablet Pantoprazole [Protonix] 40 mg PO QAM 30 Days #30 tablet Ondansetron [Zofran Odt] 4 mg PO Q8HR PRN #15 tab.rapdis PRN Reason: Nausea Referrals: [facility] [Provider Group] - 2-3 Days Forms: Work/School Release Form(ED)
[2019-10-18] MEDS ORDERED: ONDANSETRON 4 MG/2 ML INJ IV ONE (11:09)
[2019-10-18 11:10] LABS: Basophils # (Auto) 0.1 K/mm3 (0.0-0.1); Basophils % (Auto) 0.5 % (0.0-1.8); Eosinophils % (Auto) 0.4 % (0.0-4.3); Hematocrit 39.9 % (35.5-45.6); Hemoglobin 13.2 gm/dl (11.8-15.2); Lymphocytes # (Auto) 2.1 K/mm3 (1.2-5.4); Lymphocytes % (Auto) 19.7 % (13.4-35.0); Mean Corpuscular HGB Conc 33 % (32-34); Mean Corpuscular Volume 92 fl (84-94); Monocytes # (Auto) 0.8 K/mm3 (0.0-0.8); Monocytes % (Auto) 7.9 % (0.0-7.3); Platelet Count 327 K/mm3 (140-440); Red Blood Count 4.32 M/mm3 (3.65-5.03); Red Cell Distribution Width 13.5 % (13.2-15.2)
[2019-10-18 11:14] LABS: Alanine Aminotransferase 22 units/L (7-56); Albumin 4.1 g/dL (3.9-5); BUN/Creatinine Ratio 11; Blood Urea Nitrogen 11 mg/dL (9-20); Calcium 9.1 mg/dL (8.4-10.2); Hemolysis Index 4
[2019-10-18] MEDS ORDERED: ALUM-MAG HYDROXIDE-SIMETHICONE 200-200-20MG/5ML ORAL LIQD 30 ML PO ONE (11:33)
[2019-10-18] MEDS ORDERED: diphenhydrAMINE 25 MG CAP PO ONE (11:33)
[2019-10-18] MEDS ORDERED: LIDOCAINE VISCOUS 2% 15 ML ORAL LIQD PO ONE (11:36)
[2019-10-18] MEDS ORDERED: DICYCLOMINE 10 MG/5 ML ORAL LIQD PO ONE (12:00)
[2019-10-18 14:43] VITALS: BP 116/70
== END 2019-10-18 14:49 | disposition home or self-care (01) ==
LOC: ED 09:13
DX: K29.70 Gastritis, unspecified, without bleeding (principal); F17.200 Nicotine dependence, unspecified, uncomplicated; F12.10 Cannabis abuse, uncomplicated; Z79.899 Other long term (current) drug therapy
CPT/HCPCS: 36415; 80053; 81001; 83690; 85025; 96361; 96374; 96375; 99283; J2405; J7030